=== PATIENT | female | born 2000 | race African-American/Black ===

== ENCOUNTER 2021-06-15 13:41 | Outpatient (CLI) | payer OTHER, SELFPAY ==
--- NOTE | ~2021-06-15 | US_ITS ---
EXAMINATION: US transvaginal EXAM DATE: 06/15/2021 14:10 INDICATION: Pelvic Pain, Verify IUD placement. TECHNIQUE: Pelvic transvaginal sonogram was performed. There are multiple grayscale and Doppler imag es available for interpretation. There is no prior study for comparison. FINDINGS: Uterus measures 7.7 x 3.2 x 4.8 cm, with IUD centrally positioned within the lower uterine segment endometrium. Endometrial stripe measures 5 mm, within normal limits. There is no free pelvi c fluid. Right adnexa: The ovary measures 3.6 x 2.1 x 3.4 cm and is morphologically normal. Ovarian vascular f low confirmed. Left adnexa: The ovary measures 3.3 x 1.5 x 2.1 cm and is morphologically normal. Ovarian vascular fl ow confirmed. IMPRESSION: IUD in lower uterine segment endometrial canal. Reviewed, dictated and finalized at location G. GER ADMINISTRATIVE
== END 2021-06-15 13:42 ==
LOC: MICIMG 13:43
PROVIDERS: Visit Provider Nurse Practitioner
DX: R10.2 Pelvic and perineal pain (principal); Z97.5 Presence of (intrauterine) contraceptive device
CPT/HCPCS: 76830

== ENCOUNTER 2021-07-08 12:19 | Outpatient (CLI) | payer OTHER, SELFPAY ==
--- NOTE | ~2021-07-08 | XR_ITS ---
EXAMINATION: XR finger 2nd RT min 2V DATE: 07/08/2021 12:34 INDICATION: Pain in finger of right hand. TECHNIQUE: 4 views of right hand second digit were obtained. COMPARISON: Right wrist radiographs 05/17/2012 FINDINGS: Bone alignment is normal. No fracture. There is mild osteoarthritis of second metacarpophal angeal joint and proximal interphalangeal joint characterized by tiny marginal osteophytes. IMPRESSION: 1. Mild polyarticular osteoarthritis. Reviewed, dictated and finalized at location B. ESTING CONTRACTOR
== END 2021-07-08 12:20 ==
PROVIDERS: PCP Internal Medicine; Visit Provider Internal Medicine
DX: M19.041 Primary osteoarthritis, right hand (principal)
CPT/HCPCS: 73140

== ENCOUNTER → 2021-12-02 08:14 | Outpatient (CLI) | payer OTHER, SELFPAY ==
--- NOTE | ~2021-12-02 | XR_ITS ---
EXAMINATION: XR chest 2V DATE: 12/02/2021 08:51 INDICATION: Bronchitis with cough and wheezing TECHNIQUE: PA and lateral views of the chest were obtained. COMPARISON: None FINDINGS: The lungs are clear with no focal airspace opacities, pulmonary edema, pleural effusion or pneumothor ax. The cardiomediastinal silhouette is normal. Visualized bones and soft tissues are unremarkable. IMPRESSION: 1. Normal chest radiograph. Reviewed, dictated and finalized at location B. IMPRESSION: 1. Normal chest radiograph.
== END ==
PROVIDERS: PCP Internal Medicine; Visit Provider Internal Medicine
DX: J40 Bronchitis, not specified as acute or chronic (principal)
CPT/HCPCS: 71046

== ENCOUNTER 2022-04-15 06:57 | Emergency (ER) | payer OTHER, SELFPAY ==
[2022-04-15 07:02] VITALS: BP 118/80; PULSE 81; RESP 16; TEMP 36.1; O2SAT 100
--- NOTE | 2022-04-15 07:36 | ED.GENADULT ---
HPI - General Adult General Chief complaint: Neck Pain/Injury Stated complaint: neck pain Time Seen by Provider: 04/15/22 07:13 History of Present Illness HPI narrative: 21-year-old female with past medical history of fibromyalgia who has voluntarily stopped taking her Cymbalta presents for evaluation of left-sided neck pain x24 hours. Patient states a tightness and pain in the left side of her neck which worsens with turning her head. She tried a dose ibuprofen without relief. Related Data Allergies Allergy/AdvReac Type Severity Reaction Status Date / Time No Known Allergies Allergy Verified 12/16/13 16:18 Review of Systems Review of Systems: CONSTITUTIONAL: Denies fever, chills, or sweats. EYES: Denies visual changes, redness, or discharge. ENT: Denies rhinorrhea, congestion, sore throat, or otalgia. CARDIOVASCULAR: Denies chest pain, palpitations, or edema. RESPIRATORY: Denies cough or dyspnea. GASTROINTESTINAL: Denies abdominal pain, nausea, vomiting, or diarrhea. GENITOURINARY: Denies dysuria or hematuria. SKIN: Denies rash or itching. MUSCULOSKELETAL: Denies back pain, joint pain, or myalgia. NEUROLOGIC: Denies headache, numbness, or weakness. PSYCHIATRIC: Denies anxiety or depression. Exam Narrative: GENERAL: Well-appearing, well-nourished, and in no acute distress. HEAD: Normocephalic, atraumatic. EYES: PERRLA and EOMI. ENT: Nares clear, no rhinorrhea or epistaxis. Mucous membranes moist. NECK: Supple., Palpable muscle spasm in the left posterior scalene no step-offs or trauma CHEST: Clear to auscultation. No respiratory distress. HEART: Regular rate and rhythm. No murmur heard. Normal peripheral pulses. ABDOMEN: Soft, nontender, nondistended, normal active bowel sounds. EXTREMITIES: Normal range of motion. No edema. SKIN: Warm, dry, no rash. NEURO: No focal deficits. Alert and oriented x3. PSYCH: Normal mood and affect. Course Vital Signs Vital signs: Vital Signs Temperature 97.0 F L 04/15/22 07:02 Pulse Rate 81 04/15/22 07:02 Respiratory Rate 16 04/15/22 07:02 Blood Pressure 118/80 04/15/22 07:02 Pulse Oximetry 100 04/15/22 07:02 Oxygen Delivery Room Air 04/15/22 07:02 Temperature 97.0 F L 04/15/22 07:02 Pulse Rate 81 04/15/22 07:02 Respiratory Rate 16 04/15/22 07:02 Blood Pressure 118/80 04/15/22 07:02 Pulse Oximetry 100 04/15/22 07:02 Oxygen Delivery Room Air 04/15/22 07:02 Medical Decision Making MDM Narrative Medical decision making narrative: 21-year-old female with a history of fibromyalgia and medication noncompliance presents with muscle spasm in the left posterior scalene. Patient is tearful and denies any trauma or injury. I feel the untreated fibromyalgia may be contributing to the severity of her pain she is requesting shot and steroids. We will give a dose of Toradol and a single dose of dexamethasone. We have discussed exercises and stretching which patient seems resistant to attempting. Vital Signs Vital Signs: Vital Signs Temperature 97.0 F L 04/15/22 07:02 Pulse Rate 81 04/15/22 07:02 Respiratory Rate 16 04/15/22 07:02 Blood Pressure 118/80 04/15/22 07:02 Pulse Oximetry 100 04/15/22 07:02 Oxygen Delivery Room Air 04/15/22 07:02 Temperature 97.0 F L 04/15/22 07:02 Pulse Rate 81 04/15/22 07:02 Respiratory Rate 16 04/15/22 07:02 Blood Pressure 118/80 04/15/22 07:02 Pulse Oximetry 100 04/15/22 07:02 Oxygen Delivery Room Air 04/15/22 07:02 Discharge Plan Discharge Follow-up/Referrals: Teressa,MD Chanda [Primary Care Provider] -
[2022-04-15] MEDS: DEXAMETHASONE 2 MG TABLET 6 MG PO (07:39)
[2022-04-15] MEDS: KETOROLAC 30 MG/ML VIAL (*BKC) 15 MG IM (07:39)
[2022-04-15 08:35] VITALS: BP 122/81; PULSE 92; RESP 16; O2SAT 100
== END 2022-04-15 08:35 | disposition home or self-care (01) ==
PROVIDERS: Emergency Provider Emergency Medicine; PCP Internal Medicine
DX: M62.838 Other muscle spasm (principal); M79.7 Fibromyalgia; Z91.128 Patient's intentional underdosing of medication regimen for other reason; T43.216A Underdosing of selective serotonin and norepinephrine reuptake inhibitors, initial encounter
CPT/HCPCS: 96372; 99283; J1885; J8540

== ENCOUNTER 2022-06-22 10:36 | Outpatient (CLI) | payer OTHER, SELFPAY ==
--- NOTE | ~2022-06-22 | XR_ITS ---
Lumbosacral Spine: AP, oblique, and lateral views Clinical History: Pain Findings: The normal lordotic curve is maintained. The vertebral bodies and posterior elements are i ntact. The intervertebral disc spaces are preserved. The sacroiliac joints are normally outlined. Impression: No significant abnormality. Reviewed, dictated and finalized at location [] ER DUMP CRANE OPERATOR Impression: No significant abnormality.
--- NOTE | ~2022-06-22 | XR_ITS ---
Left foot Technique: AP and lateral weightbearing views were obtained. Clinical History: Pain Findings: No acute fracture or dislocation is seen. Osseous alignment is anatomic. Type II os navicul ar noted. Joint spaces are preserved without erosive or degenerative change. Soft tissues are unremar kable. Impression: Type II os navicular, otherwise unremarkable exam. Reviewed, dictated and finalized at location [] MERIZATION SUPERVISOR Impression: Type II os navicular, otherwise unremarkable exam.
--- NOTE | ~2022-06-22 | XR_ITS ---
Right foot Technique: AP and lateral weightbearing views were obtained. Clinical History: Pain Findings: No acute fracture or dislocation is seen. Type II os navicular noted. Osseous alignment is anatomic. Joint spaces are preserved without erosive or degenerative change. Soft tissues are unremar kable. Impression: Type II os navicular, otherwise unremarkable exam. Reviewed, dictated and finalized at location [] OR NETWORK SECURITY ENGINEER Impression: Type II os navicular, otherwise unremarkable exam.
--- NOTE | ~2022-06-22 | XR_ITS ---
AP and oblique views of the SI joints CLINICAL HISTORY: Osteoarthritis FINDINGS: No fracture seen. SI joints are unremarkable. No sclerosis, ankylosis, or erosive change. V isualized hip joints appear unremarkable as well. Soft tissues are unremarkable. IMPRESSION: Unremarkable exam. Reviewed, dictated and finalized at location [] RESSED GAS TESTER IMPRESSION: Unremarkable exam.
--- NOTE | ~2022-06-22 | XR_ITS ---
Bilateral Hands Technique: PA, oblique, and lateral views, and ball-catcher's view were obtained. Clinical History: Arthritis Findings: No acute fracture or dislocation is seen. Osseous alignment is anatomic. Joint spaces are p reserved. Soft tissues are unremarkable. Impression: Unremarkable bilateral hands. Reviewed, dictated and finalized at location [] RAL FABRICATOR Impression: Unremarkable bilateral hands.
--- NOTE | ~2022-06-22 | XR_ITS ---
Cervical Spine: AP and lateral views Clinical History: Pain Findings: The normal lordotic curve is maintained. The vertebral bodies and posterior elements appea r intact. The intervertebral disc spaces are well maintained. Pre-vertebral soft tissues are unremar kable. Impression: No significant abnormality is seen. Reviewed, dictated and finalized at location [] WASHER Impression: No significant abnormality is seen.
[2022-06-22 11:54] LABS: Rheumatoid Factor < 8.6 IU/ML (<12)
[2022-06-22 11:55] LABS: CRP < 0.5 mg/dL (<1.0); Creatine Kinase 74 U/L (30-135); Uric Acid 3.3 mg/dL (2.5-7.5)
[2022-06-22 11:57] LABS: Complement C3 115 mg/dL (88-165)
[2022-06-22 12:18] LABS: Vitamin D 25 Hydroxy 30.9 ng/mL
[2022-06-25 05:06] LABS: Thyroid Peroxidase Antibodies <1 IU/mL (<9)
[2022-06-25 20:56] LABS: Anti Cyclic Citrullinated Pept <16 Units (<20)
[2022-06-28 19:24] LABS: Aldolase 3.7 U/L (<=8.1); Angiotensin Converting Enzyme 24 U/L (9-67)
== END 2022-06-22 10:37 | disposition home or self-care (01) ==
PROVIDERS: PCP Internal Medicine; Visit Provider Internal Medicine
DX: M19.90 Unspecified osteoarthritis, unspecified site (principal); Z71.89 Other specified counseling; Z79.899 Other long term (current) drug therapy
CPT/HCPCS: 36415; 72040; 72110; 72202; 73130; 73620; 82085; 82164; 82306; 82550; 84550; 86140; 86160; 86200; 86376; 86430

== ENCOUNTER 2022-10-11 01:28 | Day surgery (SDC) | payer BC, SELFPAY ==
[2022-09-28 13:54] VITALS: BMI 20.6
[2022-10-11 08:10] VITALS: BP 122/81; PULSE 92; RESP 16; TEMP 36.2; O2SAT 100
[2022-10-11] MEDS: LACTATED RINGERS 1,000 ML 150 ML IV CONT (08:24)
--- NOTE | 2022-10-11 08:48 | P.PNAN_ITS ---
Anes - Initial Pre Proc Eval Procedure: Operation Date: 10/11/22 09:30 Proposed Procedures p Esophagogastroduodenoscopy & Colonoscopy - Livan Mullen MD Date/Time: 10/11/22 08:48 Surgeon: Livan Mullen MD Pre Op Diagnosis: Lower abdominal pain, Nausea Patient Data Age: 22 Gender: F Height: 1.73 m Weight: 55.6 kg Last Vital Signs Temp 97.1 F L 10/11/22 08:10 Pulse 92 10/11/22 08:10 Resp 16 10/11/22 08:10 BP 122/81 10/11/22 08:10 Pulse Ox 100 10/11/22 08:10 O2 Del Method Room Air 10/11/22 08:10 Allergies Allergy/AdvReac Type Severity Reaction Status Date / Time No Known Allergies Allergy Verified 10/11/22 08:09 Home Medications Medication Instructions Recorded Confirmed Type ibuprofen 600 mg tablet 600 mg PO TID #14 tabs 04/15/22 10/11/22 Rx cholecalciferol (vitamin D3) 25 25 mcg PO DAILY 06/22/22 10/11/22 History mcg (1,000 unit) capsule cyclobenzaprine 5 mg tablet 5 mg PO TID PRN Acid Reflux 06/22/22 10/11/22 History meloxicam 7.5 mg tablet 7.5 mg PO DAILY 06/22/22 10/11/22 History omeprazole 20 mg capsule,delayed 20 mg PO DAILY #90 caps 08/26/22 10/11/22 Rx release hyoscyamine sulfate 0.125 mg tablet See Rx Instructions .Route 09/01/22 10/11/22 Rx .COMPLEX #120 tabs sertraline 50 mg PO DAILY 09/28/22 10/11/22 History Patient hx anesthesia problems: none Family hx anesthesia problems: none Results Review: All pre-operative results and documents have been reviewed as part of the pre- operative evaluation. [facility] Past Medical History Medical History Anemia Anxiety Arthritis Diabetes Inflammatory arthritis Stomach pain Family History Family History Father Asthma Mother Cancer Depression Grandparent Cancer Diabetes mellitus Hypertension Depression Social History Social History (Reviewed 08/09/22 @ 09:53 by Lloyd Ulloa Smoking status: Never smoker Alcohol intake: current Drinks per week: 1 Substance use: current Substance use type: marijuana Other substance usage details: daily Living arrangements: with family Anes - Evmahesh Final PreProcedure Day of Procedure 10/11/22 08:48 Patient weight: normal Heart: regular rate and rhythm Lungs: clear to auscultation Airway: Mallampati scale class II Neurological: alert and oriented Last oral intake: >/= 8 hours ASA classification: II Emergent: no Anesthetic plan: proceed Anesthesia type and monitoring: general GIVS and standard monitoring Results Review: All pre-operative results and documents have been reviewed as part of the pre- operative evaluation. Informed Consent: The patient's anesthetic plan and its attendant risks and benefits were discussed with the patient/family/POA. Questions were solicited and answers provided to the satisfaction of the patient/family/POA.
--- NOTE | 2022-10-11 08:58 | PM.HPGS ---
History of Present Illness History of Present Illness Consent: Risks, benefits, and alternatives have been discussed and questions answered. Patient agrees to proceed with procedure. Chief complaint: Lower abdominal pain, Nausea Narrative: Geri Perea is a 22 year old female with intermittent nausea, also abdominal cramping- used hyoscyamine with minimal relief, never had scopes. Also smokes marijuana. Review of Systems Constitutional: Constitutional: Denies headache(s) and Denies weakness Eyes: Eyes: Denies blurry vision ENT: Reports Normal hearing present, Denies headache(s) and Denies neck pain Cardiovascular: Cardiovascular: Denies chest pain and Denies dyspnea Respiratory: Respiratory: Denies dyspnea Gastrointestinal: Gastrointestinal: Reports no additional gastrointestinal complaints Genitourinary: Genitourinary: Denies dysuria Musculoskeletal: Musculoskeletal: Denies neck pain Integumentary/Breasts: Skin/Breast: Denies dry skin Neurologic: Reports Normal hearing present, Denies headache(s) and Denies weakness Psychiatric: Psychiatric: Denies anxiety Endocrine: Endocrine: Denies change in body appearance Hematologic/Lymphatic: Hematologic/Lymphatic: Denies easy bleeding Allergic/Immunologic: Allergic/Immunologic: Denies urticaria PMFSH Past Medical History Medical History (Updated 10/11/22 @ 09:00 by Livan Mullen MD) Abdominal cramping Anemia Anxiety Arthritis Diabetes Inflammatory arthritis Marijuana smoker Nausea Stomach pain Family History Family History Father Asthma Mother Cancer Depression Grandparent Cancer Diabetes mellitus Hypertension Depression Social History Social History Smoking status: Never smoker Alcohol intake: current Drinks per week: 1 Substance use: current Substance use type: marijuana Other substance usage details: daily Living arrangements: with family Meds Home Medications and Allergies Home Medications Medication Instructions Recorded Confirmed Type ibuprofen 600 mg tablet 600 mg PO TID #14 tabs 04/15/22 10/11/22 Rx cholecalciferol (vitamin D3) 25 25 mcg PO DAILY 06/22/22 10/11/22 History mcg (1,000 unit) capsule cyclobenzaprine 5 mg tablet 5 mg PO TID PRN Acid Reflux 06/22/22 10/11/22 History meloxicam 7.5 mg tablet 7.5 mg PO DAILY 06/22/22 10/11/22 History omeprazole 20 mg capsule,delayed 20 mg PO DAILY #90 caps 08/26/22 10/11/22 Rx release hyoscyamine sulfate 0.125 mg tablet See Rx Instructions .Route 09/01/22 10/11/22 Rx .COMPLEX #120 tabs sertraline 50 mg PO DAILY 09/28/22 10/11/22 History Allergies Allergy/AdvReac Type Severity Reaction Status Date / Time No Known Allergies Allergy Verified 10/11/22 08:09 Vital Signs Vital Signs - 24 hr 10/11/22 08:10 Temperature 97.1 F L Pulse Rate 92 Respiratory Rate 16 Blood Pressure 122/81 Pulse Oximetry 100 Oxygen Delivery Room Air Exam Const: General: comfortable and no acute distress HENMT: Face/Nose/Sinus: Normal nares present Eyes: General: appearance normal, both eyes and all related structures Neck: Neck: no JVD Resp: Auscultation: clear to auscultation bilaterally Cardio: Rate: regular rate Rhythm: regular rhythm GI: Inspection: non-distended GI Palp: Yes Soft to palpation Skin: General skin exam: normal color Neuro: General: gait normal Speech: normal speech Extrem: General: normal to inspection Psych: Mental Status: mental status grossly normal Assessment and Plan Assessment and plan (1) Nausea: Code(s): R11.0 - Nausea Status: Acute Assessment and Plan: egd with bx (2) Abdominal cramping: Code(s): R10.9 - Unspecified abdominal pain Status: Acute Assessment and Plan: colonoscopy, probably functional (3) Marijuana smoker: Code(s): F12.90 -
--- NOTE | 2022-10-11 09:13 | SUR.OPER ---
EGD: [id number] COLON: [id number]
[2022-10-11 09:28] VITALS: BP 120/79; PULSE 68; RESP 25; O2SAT 100
[2022-10-11 09:38] VITALS: BP 121/79; PULSE 86; RESP 18; O2SAT 100
[2022-10-11 09:48] VITALS: BP 122/80; PULSE 87; RESP 23; O2SAT 100
== END 2022-10-11 10:02 | disposition home or self-care (01) ==
PROVIDERS: PCP Internal Medicine; Visit Provider Internal Medicine Gastroenterology
PROC: 0DJ08ZZ Inspection of Upper Intestinal Tract, Via Natural or Artificial Opening Endoscopic (ICD-10-PCS; CPT 43235; principal; 2022-10-11 09:30)
DX: R11.0 Nausea (principal); R10.30 Lower abdominal pain, unspecified; E11.9 Type 2 diabetes mellitus without complications; F41.9 Anxiety disorder, unspecified; F12.90 Cannabis use, unspecified, uncomplicated
CPT/HCPCS: 45378; 43239; 88305; J2704; J7120

== ENCOUNTER 2024-06-04 09:38 | Outpatient (CLI) | payer BC, SELFPAY ==
--- NOTE | ~2024-06-04 | US_ITS ---
US breast BI limited INDICATION: Palpable bilateral breast abnormality TECHNIQUE: Dedicated Limited bilateral breast ultrasound COMPARISON: No prior studies for comparison. FINDINGS: Right breast: At 9:00, 2 cm from the nipple in the area of palpable concern there is a 5 mm cyst. No suspicious masses to suggest malignancy. Left breast: Normal heterogeneous echotexture without focal solid or cystic mass. IMPRESSION: 1: No sonographic evidence for malignancy in either breast. Benign finding. BI-RADS CATEGORY 2 - BENIGN FINDINGS Reviewed, dictated and finalized at location B. RINARY PHARMACOLOGIST
== END 2024-06-04 09:39 | disposition home or self-care (01) ==
LOC: MICIMG 09:39
PROVIDERS: PCP Internal Medicine; Visit Provider Obstetrics & Gynecology
DX: N63.10 Unspecified lump in the right breast, unspecified quadrant (principal); N63.20 Unspecified lump in the left breast, unspecified quadrant
CPT/HCPCS: 76642